=== PATIENT | male | born 1980 | race Caucasian/White ===

== ENCOUNTER 2016-08-31 14:12 | Emergency (ER) | payer BC, OTHER ==
[~2016-08-31] VITALS: Ht 193 cm; Wt 92.9 kg
[2016-08-31 14:19] VITALS: TEMP 36.8; Ht 193 cm; Wt 92.9 kg
[2016-08-31] MEDS ORDERED: NAPR1TAB9 PO (15:03)
[2016-08-31] MEDS ORDERED: XYLOCAINE 1%/SOD BICARB 20 ML VIAL INFIL ONE (15:30)
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
[2016-08-31 16:20] VITALS: BP 124/87; PULSE 85; O2SAT 97
== END 2016-08-31 16:22 | disposition home or self-care (01) ==
LOC: C.EDB 14:14 → C.EDD 16:22
DX: S01.511A Laceration without foreign body of lip, initial encounter (principal); W51.XXXA Accidental striking against or bumped into by another person, initial encounter